=== PATIENT | female | born 1990 | race Caucasian/White ===

== ENCOUNTER 2025-06-07 11:16 | Outpatient (CLI) | payer OTHER, SELFPAY ==
--- NOTE | ~2025-06-07 | XR_ITS ---
Examination: XR foot LT min 3V Clinical History: M79.672 - Pain in left foot Comparison: Pain Technique: 4 views left foot Findings/impression: 1. No fracture or dislocation identified left foot. 2. Small calcaneal enthesophyte at plantar fascia insertion site. Reviewed, dictated and finalized at location [facility]
--- OUTSIDE RECORDS SUMMARY | 2025-06-07 12:08 | XMS_ITS | Clinical Summary ---
Author Organization [facility] Address [address] [place] [address] Care Team Providers Care Block Cleaner Name Role Phone Teddy Smith MD Primary Care Provider [phone] Source Comments [facility],non-owned Affiliates and Associated Physician Practices is amultiple site organization consisting of ambulatory clinics and hospital sitesin [place], [place], [place] and [place]. This disclosure is being madepursuant to the Care Everywhere program and may not contain all information available regarding this patient. Last updated 18.[facility] [employer] Allergies No known active allergies Medications * Be aware that medications may not be up to date on this document. Alwaysverify current medications with the patient. Norgestim-Eth Estrad Triphasic (TRI-SPRINTEC PO) once daily Active multivitamin daily tablet Take 1 tablet by mouth daily with food Active AZO CRANBERRY GUMMIES PO Active multivitamin (OPURITY) CHEW tablet every 24 hours Activ e ferrous sulfate 325 (65 FE) MG tablet ferrous sulfate 325 mg (65 mg iron) tablet 1 Active ketoconazole (NIZORAL) 2 % shampooIndicatio ns:Other seborrheic dermatitis Apply to wet hair, leave on for 3 minutes, then rinse; three times weekly. 30 days supply 120 mL 5 1 Active polyethylene glycol (GOLYTELY) 236 g solution Drink all of the bowel prep the night before procedure, beginning at 6pm. 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 Assessment & Plan (01/03/2021 1:21 PM CDT): - Chronic - Extensive lesions associated with sun damage and increased risk of skin cancer - Reviewed concerning signs for development of skin cancer - Counseled on importance of daily sun protection, recommend OTC broad spectrum, SPF >30 - Advised monthly self skin exams Melanocytic nevi of trunk 01/03/2021 Family History Medical History Relation Name Comments None Known Brother None Known Father None Known Maternal Aunt None Known Maternal Grandfather None Known Maternal Grandmother None Known Maternal Uncle None Known Mother None Known Other None Known Paternal Aunt None Known Paternal Grandfather None Known Paternal Grandmother None Known Paternal Uncle Eczema Sister Asthma Neg Hx CVA Neg Hx Cancer - Breast Neg Hx Cancer - Other Neg Hx Cancer - Skin, Melanoma Neg Hx Cancer - Skin, Non Melanoma Neg Hx Hemophilia Neg Hx Psoriasis Neg Hx Relation Name Status Comments Brother Father Maternal Aunt Maternal Grandfather Maternal Grandmother Maternal Uncle Mother Other Paternal Aunt Paternal Grandfather Paternal Grandmother Paternal Uncle Sister Social History Tobacco Use Types Packs/Day Years Used Date Smoking Tobacco: Never Smokeless Tobacco: Never Tobacco Cessation:Counseling Given: No Alcohol Use Standard Drinks/Week Comments Yes 0 (1 standard drink = 0.6 oz pur e alcohol) Comments Unknown Sex and Gender Information Value Date Recorded Sex Assigned at Female 11/15/2021 10:31 AM CDT Legal Sex Female 10:11 AM CDT Gender Identity Female 11/15/2021 10:31 AM CDT Sexual Orientation Straight 11/15/2021 10 :31 AM CDT Last Filed Vital Signs Vital Sign Reading Time Taken Comments Blood Pressure 138/77 01/17/2021 9:30 AM CDT Pulse 59 01/17/2021 9:30 AM CDT Temperature 36.8 C (98.2 F) 01/17/2021 7:35 AM CDT Respiratory Rate 29 01/17/2021 9:30 AM CDT Oxygen Saturation 100% 01/17/2021 9:30 AM CDT Inhaled Oxygen Concentration - - Weight 88.2 kg (194 lb 8 oz) 11/22/2020 10:09 AM CDT Height 165.1 cm (5' 5) 11/22/2020 10:09 AM CDT Body Mass Index 32.37 11/22/2020 10:09 AM CDT Plan of Treatment Health Maintenance Due Date Last Done Comments HIV SCREENING 2005 HEPATITIS C SCREENING 06/19/2008 DTAP/TDAP/TD VACCINES (1 - Tdap) 2009 HEPATITIS B VACCINE (1 of 3 - 19+ 3-dose series) 2009 HPV VACCINE (1 - 3-dose SCDM series) 2017 DEPRESSION SCREENING 07/29/2024 COVID-19 VACCINE (1 - 2023-2 5 season) 2025 INFLUENZA VACCINE (#1) 2025 05/04/2015 ZOSTER VACCINE (1 of 2) 2040 HIB VACCINE Aged Out No longer eligi ble based on patient's age to complete this topic MENINGOCOCCAL (Group B) VACC INE SHARED DECISION-MAKING Aged Out No longer eligibl e based on patient's age to complete this topic MENINGOCOCCAL GROUPS A/C/Y/W VACCINE Aged Out No longer eligible b ased on patient's age to complete this topic PNEUMOCOCCAL VACCINE Aged Out No long er eligible based on patient's age to complete this topic Insurance [facility] Care Teams Block Cleaner Relationship Specialty Start Date End Date Teddy Smith MD [phone] (work) PCP - General Family Medicine 11/22/20
== END 2025-06-07 11:17 | disposition home or self-care (01) ==
PROVIDERS: PCP Nurse Practitioner Adult Health; Visit Provider Orthopaedic Surgery
DX: M77.32 Calcaneal spur, left foot (principal)
CPT/HCPCS: 73630